=== PATIENT | male | born 1955 | race Caucasian/White ===

== ENCOUNTER → 2017-03-02 | Outpatient (CLI) | payer OTHER ==
[~2017-03-02] MED LIST: ASPIR 8181 MG PO; CLONAZEPAM0.5 MG PO; ELIQUIS5 MG PO; FENOFIBRATE160 MG PO; GLUCOPHAGE XR500 MG PO; LORTAB 7.5-3251 EACH PO; OMEPRAZOLE20 M1 PO; PLAVIX 75 MG TA75 MG PO; SOTALOL80 MG PO; ZOCOR20 MG PO
== END ==
LOC: LAB 08:53
DX: E11.9 Type 2 diabetes mellitus without complications (principal)
CPT/HCPCS: 36415; 82565; 84520

== ENCOUNTER → 2017-03-03 | Outpatient (CLI) | payer OTHER | LOC: CT 09:15 | DX: I65.29 Occlusion and stenosis of unspecified carotid artery (principal); I65.21 Occlusion and stenosis of right carotid artery; I87.1 Compression of vein | CPT/HCPCS: 70498; J7050; Q9963 ==

== ENCOUNTER → 2017-04-13 | Outpatient (CLI) | payer OTHER | LOC: HEART CORB 08:45 | DX: R07.2 Precordial pain (principal) | CPT/HCPCS: 78452; 93017; A9502; J2785 ==